=== PATIENT | male | born 1935 | race Caucasian/White ===

== ENCOUNTER 2016-06-23 09:08 | Emergency (ER) | payer MEDICARE, BC ==
[~2016-06-23] VITALS: Ht 165.1 cm; Wt 74.3 kg
[2016-06-23 09:10] VITALS: Ht 165.1 cm; Wt 74.3 kg
[2016-06-23] MEDS ORDERED: WARF5TAB6 PO (09:29)
--- NOTE | 2016-06-23 09:31 | ERPDOC ---
Departure Disposition Decision Date: Jun 23, 2016 Disposition Decision Time: 11:40 Disposition: 02 [facility] Impression Impression Impression: Primary Impression: Multiple rib fractures Encounter type: initial encounter Fracture type: closed Laterality: right Qualified Codes: S22.41XA - Multiple fractures of ribs, right side, initial encounter for closed fracture Additional Impression: Hemothorax on right Severity: Moderate Condition: Improved Seen By: Physician only Problems/Meds/Labs Reviewed?: Yes Medications reviewed and manag: Yes Follow up care ordered?: Yes Mental Status: Alert, Oriented Critical Care Note Total Time (mins): 47 Critical Care Spent: [id number] care of pt, Reviewing test results, Discuss the case w/staff, Documenting the MR, Discussion w/ family/DPOA HPI - General Medical General Chief Complaint: Low Back Pain or Injury Stated Complaint: WORSENING BACK PAIN Time Seen by Provider: 09:11 Source: patient, family Exam Limitations: no limitations HPI - General Medical Initial Comments 80-year-old male presents the emergency department with a chief complaint of suffering an injury following a fall 2 days ago. Patient was at home at home in [facility] when he suffered a mechanical fall. Patient slipped while going down a single carpeted step and fell landing on his right rib cage. He denies striking his head, neck pain or loss of consciousness. Patient is anticoagulated on Coumadin. His last INR check was 1 week ago and was 3. Patient is anticoagulated secondary to a mechanical valve and atrial fibrillation. Patient notes a moderate dull aching sensation that increases with movement and direct palpation of the affected area. No radiation. Patient denies any other complaints or associated symptoms. Symptoms have been persistent in nature since onset. Patient was at home when the symptoms began. Occurred At: home Onset: Constant Allergies: Coded Allergies: No Known Allergies (Unverified , 06/23/16) Past History Patient Medical History Problem List Updates: Atrial Fibrillation Patient Surgical History Mechanical valve replacement Family History Family History: Negative Social History Smoking Status: Never smoker Substance Use Type: does not use Alcohol Intake: none Review of Systems Constitutional Constitutional: DENIES: chills, fever Eyes General: DENIES: erythema, exudate Lids/Accessories: DENIES: erythema, swelling Vision: DENIES: acuity, blurring ENMT Ears: DENIES: drainage, erythema Hearing: DENIES: hearing loss Balance: DENIES: ataxia, falling to one side Sinuses: DENIES: congestion, pain Nose: DENIES: nosebleeds, pain Mouth/Throat: DENIES: painful swallowing, sore throat Teeth: DENIES: pain Jaw: DENIES: pain Cardiovascular Cardiac: DENIES: chest pain, dyspnea on exertion Rhythm/Rate: DENIES: irregular beat, palpitations Vascular: DENIES: pedal edema, unilateral swelling Pulmonary Respiratory: DENIES: cough, dyspnea, pleuritic chest pain, sputum GI Upper Abdomen: DENIES: nausea, pain, vomiting Lower Abdomen: DENIES: diarrhea, pain General: DENIES: dysuria, frequency Musculoskeletal General: tenderness, DENIES: joint pain Integumentary Skin: DENIES: itching, rash Neurological General: DENIES: headache, numbness, weakness Psychiatric Psychiatric: DENIES: emotional instability, suicidal ideation/attempt Endocrine Endocrine: DENIES: polydipsia, polyphagia Hematologic/Lymphatic Hematologic/Lymphatic: DENIES: frequent nosebleeds, lymphadenopathy Allergic/Immunological Allergic/Immunoligical: DENIES: allergic reactions, hives Physical Exam General General Nourishment: well nourished, well developed, appears stated age, no acute distress, adult General Body Habitus: well groomed Vitals and Pain First Documented Vital Signs Date Time Temp Pulse Resp B/P Pulse Ox O2 Delivery O2 Flow Rate FiO2 06/23/16 09:10 98.5 78 14 139/81 98 Room Air Weight: Kilograms: Height (feet): Height (inches): Triage Pain Scale: RN VS reviewed by Provider: Yes Normal Exams: Head: Normocephalic w/o trauma Eyes: Pupils are PERRLA w/ EOMI, No scleral icterus, irritation, or foreign bodies noted ENMT: No facial trauma, nasal exudates, pharyngeal erythema, or exudates are noted Dental: No fractured, loose, or missing teeth noted Neck: Full range of motion, without adenopathy, JVD, bruits or thyromegaly Chest/Resp: Clear all boyer, with good airflow, and symmetry bilaterally CV: Regular rate and rhythm, without murmur or gallop, Pulses 2+ all extremities, capillary refill, <2 seconds all ext., no pedal edema noted Abdomen: Bowel sounds positive, soft, non-tender, non-distended, no hepatosplenomegaly, masses or bruits noted Lymphatic: No lymphadenopathy, or lymphedema noted Musculoskeletal: No tenderness, or deformity noted, good range of motion, all extremities Integumentary: No rashes, hives, or bruising noted, hair and nails, without abnormality Neurologic: Patient is alert, and oriented, cranial nerves, motor/sensory/ cerebellar, exams w/o gross deficits, to observation Psychiatric: Patient exhibits, appropriate attention, emotion and affect Musculoskeletal (brief) Comments Right lateral ribs tender to palpation without crepitus. No outward signs of trauma. Progress Results/Orders Orders Procedure Category Date Status Time Bmp - Basic Metabolic LAB 06/23/16 Complete Panel INR LAB 06/23/[address] Chest/Abd/Pelvis Wc CT 06/23/16 Taken 09:26 Iohexol (Omnipaque) PHA 06/23/16 Complete 10:07 Normal Saline (Ns) PHA 06/23/16 Complete 10:07 Saline Flush (Iv PHA 06/23/16 Complete Flush) 10:07 Normal Saline (Ns) PHA 06/23/16 Complete 10:15 Fentanyl (Fentanyl) PHA 06/23/16 Complete 11:30 Ondansetron Inj PHA 06/23/16 Complete (Zofran) 11:30 Lab Results Laboratory Tests Test 06/23/16 09:44 Prothromb Time International Ratio 3.09 Turbidity < 20 Sodium Level 144MEQ/L Potassium Level 4.3MEQ/L Chloride Level 104MEQ/L Carbon Dioxide Level 27MEQ/L Anion Gap 13MEQ/L Blood Urea Nitrogen 23.0MG/DL Creatinine 1.4MG/DL Glomerular Filtration Rate Calc 49 BUN/Creatinine Ratio 16RATIO Glucose Level 109MG/DL Calculated Osmolality 282MOSM/KG Calcium Level 9.4MG/DL Icterus Index < 2 Chemistry Specimen Hemolysis < 15 Medications Current ED Medications Iohexol 1 bottle 1 bottle STK-MED ONCE .ROUTE ; Start 06/23/16 at 10:07; Stop 06/23/16 at 10:08; Status DC Sodium Chloride (NS) 100 ml @ As Directed STK-MED ONCE .ROUTE ; Start 06/23/16 at 10:07; Stop 06/23/16 at 10:08; Status DC Sodium Chloride 10 ml 10 ml STK-MED ONCE .ROUTE ; Start 06/23/16 at 10:07; Stop 4/8/17 at 10:08; Status DC Sodium Chloride (NS) 500 ml @ 999 mls/hr Q31M ONCE IV Last administered on 06/23 11:17; Start 06/23/16 at 10:15; Stop 06/23/16 at 10:45; Status DC Fentanyl (Fentanyl) 25 mcg O ONCE IV Last administered on 06/23/16 11:37; Start 06/23/16 at 11:30; Stop 06/23/16 at 11:31; Status DC Ondansetron HCl (Zofran) 4 mg O ONCE IV Last administered on 06/23/16 11:32; Start 06/23/16 at 11:30; Stop 06/23/16 at 11:31; Status DC Progress Progress Labs/imaging were discussed in detail with the patient and questions are answered. Patient is given analgesic pain medication in the emergency Department. Patient is given gentle IV hydration. Patient is discussed with Dr. Jagjit Gamez from [facility] trauma service and will be transferred to [facility] as a level II trauma. Dr. Gamez is the accepting physician. Patient needs to be transferred from [facility] to [facility] as trauma services are not available at [facility]. Patient and family are in agreement with the current plan of management. Patient is transferred to [facility] in improved condition. Risk versus benefit of transfer are discussed in detail with the patient and family and questions are answered. Patient did refuse CT scan of the head/cervical spine while in the emergency department. CT CT : CT: Chest IV contrast Interpretation: Abnormal (rib fractures 7-12 on the right. Potential small hemothorax. No other acute abnormalities. CT abd/pelvis: Negative.), Faxed Report RIC NOLASCO DO Jun 23, 2016 09:31
[2016-06-23] MEDS ORDERED: DIGO250T85 PO (09:32)
[2016-06-23] MEDS ORDERED: METO50TA5 PO (09:33)
[2016-06-23] MEDS ORDERED: LOVA20TA3 PO (09:35)
[2016-06-23] MEDS ORDERED: VIT1CAPS47 PO (09:36)
[2016-06-23] MEDS ORDERED: CHOL500050 PO (09:36)
[2016-06-23] MEDS ORDERED: CETI-115 PO (09:37)
[2016-06-23 09:57] LABS: INR 3.09 (0.76-1.04); PROTHROMBIN TIME 33.7 SEC (9.31-12.49)
[2016-06-23 10:02] LABS: ANION GAP 13 MEQ/L (5-15); BUN/CREATININE RATIO 16 RATIO (6-26); CALCIUM 9.4 MG/DL (8.4-10.2); CHLORIDE 104 MEQ/L (98-107); CO2 - CARBON DIOXIDE 27 MEQ/L (22-30); CREATININE 1.4 MG/DL (0.8-1.5); GLOMERULAR FILTRATION RATE 49; GLUCOSE 109 MG/DL (75-110); POTASSIUM 4.3 MEQ/L (3.6-5); SODIUM 144 MEQ/L (134-144)
[2016-06-23] MEDS ORDERED: IOHEXOL 300 MG/ML 100ml INJECTION ONE (10:07)
[2016-06-23] MEDS ORDERED: SALINE FLUSH 10ml SYRINGE ONE (10:07)
[2016-06-23] MEDS ORDERED: NORMAL SALINE 100 ML ONE (10:07)
[2016-06-23] MEDS ORDERED: NORMAL SALINE 500 ML IV ONE (10:15)
--- NOTE | 2016-06-23 10:20 | NUR ---
CT PT TO CT PER COT.
--- NOTE | 2016-06-23 10:34 | NUR ---
CT PT RETURNED FROM CT PER COT.
--- NOTE | 2016-06-23 11:10 | NUR ---
REPORT RECEIVED FROM CHARBEL OLIVARES. CARE ASSUMED.
--- NOTE | 2016-06-23 11:21 | NUR ---
PAIN PT REPORTS PAIN 8-12/25. PT STATES HIS R RIBS HURT WHEN HE MOVES. PT GRIMACES WITH MOVEMENT INTO BED. NOTIFIED DR NOLASCO OF PT'S PAIN.
[2016-06-23] MEDS ORDERED: FENTANYL 100mcg/2ml INJECTION IV ONE (11:30)
[2016-06-23] MEDS ORDERED: ONDANSETRON 4mg/2ml INJECTION IV ONE (11:30)
--- NOTE | 2016-06-23 11:30 | NUR ---
EDUCATION EDUCATED PT REGARDING THE IMPORTANCE OF COUGHING AND DEEP BREATHINGS TO FACILITATE GOOD AIR MOVEMENT IN LUNGS. PROVIDED RATIONAL FOR EXERCISES. PT STATES HE IS FAMILIAR WITH AN INCENTIVE SPIROMETER, HAS USED THEM AFTER PREVIOUS SURGERIES.
--- NOTE | 2016-06-23 11:37 | NUR ---
DR DR Raul NOLASCO AT BEDSIDE.
--- NOTE | 2016-06-23 11:58 | NUR ---
CONSENT FOR TRANSFER SIGNED AT THIS TIME.
--- NOTE | 2016-06-23 12:00 | NUR ---
RT ABHIJEET, RT AT BEDSIDE FOR I.S. INSTRUCTION.
--- NOTE | 2016-06-23 12:05 | NUR ---
DR DR Raul NOLASCO AT BEDSIDE.
--- NOTE | 2016-06-23 12:27 | NUR ---
[facility] DISPATCH/REPORT CONTACTED [facility], GAVE REPORT TO CHARBEL BEASLEY.
--- NOTE | 2016-06-23 12:33 | NUR ---
[facility] NOTIFIED OF NEED FOR EMS FOR TRANSFER.
--- NOTE | 2016-06-23 12:41 | NUR ---
EMS AT BEDSIDE, REPORT GIVEN.
[2016-06-23 12:46] VITALS: BP 159/72; PULSE 75; RESP 16; TEMP 98.8; O2SAT 95
--- NOTE | 2016-06-23 12:46 | NUR ---
TRANSFER PT DEPARTED WITH EMS AT THIS TIME. PT'S SON IN LAW TOOK PT'S WALLET. BELONGINGS THAT ACCOMANY PT FOR TRANSFER INCLUDE JEANS, BELT, SHOES AND SHIRT.
--- NOTE | 2016-06-24 09:20 | DI ---
Indication: ITS.REASON: Right lower chest pain, recent fall PROCEDURE: CT CHEST/ABD/PELVIS WC: Encounter: Initial Comparison: None Technique: Axial CT images were performed through the chest, abdomen and pelvis after the administration of intravenous contrast. Coronal and sagittal two-dimensional reformats. Automated Exposure Control and Iterative Reconstruction dose reducing techniques were utilized. Contrast: Omnipaque 300 98 mL Findings: Chest: No pneumothorax. Calcified granuloma in the left lower lobe. Trace right effusion with lingular atelectasis. Small amount of mucus or debris in the trachea. Significant cardiomegaly. Prior CABG. No axillary or mediastinal adenopathy. No pericardial effusion. Minimally displaced right 11th and 12th posterior rib fractures are acute. Abdomen/pelvis: Fatty liver without bile duct dilatation. Gallbladder is absent. Spleen, pancreas and right adrenal gland are within normal limits. Probable adenomatous hyperplasia of the left adrenal. Bilateral renal cysts. Atherosclerotic plaque in the aorta. No adenopathy, free fluid or free air. Bladder is normal. Brachytherapy seeds in the region of the prostate. No evidence of a bowel obstruction. Bone windows show degenerative changes in the spine. Impression: Right lower rib fractures. Otherwise, no acute traumatic abnormality seen in the chest, abdomen or pelvis. There is a preliminary report by [facility]. .
== END 2016-06-23 12:46 | disposition short-term general hospital (02) ==
LOC: ED 09:08
DX: Z79.01 Long term (current) use of anticoagulants (principal); S27.1XXA Traumatic hemothorax, initial encounter; S22.41XA Multiple fractures of ribs, right side, initial encounter for closed fracture; W10.8XXA Fall (on) (from) other stairs and steps, initial encounter; Y93.9 Activity, unspecified; Y92.008 Other place in unspecified non-institutional (private) residence as the place of occurrence of the external cause; Y99.8 Other external cause status
CPT/HCPCS: 71260; 74177; 80048; 85610; 96361; 96374; 96375; 99285; J2405; J3010; J7050; Q9967